=== PATIENT | female | born 2005 | race American Indian/Alaskan Native ===

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

== ENCOUNTER 2023-02-16 19:22 | Emergency (ER) | payer MEDICAID ==
[2023-02-16 19:54] VITALS: BP 138/58; PULSE 80
[2023-02-16 20:06] LABS: APPEARANCE,URINE SLIGHTLY CLOUDY (CLEAR); BILIRUBIN,URINE NEGATIVE (NEGATIVE); COLOR,URINE YELLOW (YELLOW); GLUCOSE,URINE NEGATIVE (NEGATIVE); KETONES,URINE NEGATIVE (NEGATIVE); LEUKOCYTE ESTERASE,URINE SMALL (NEGATIVE); NITRITE,URINE NEGATIVE (NEGATIVE); OCCULT BLOOD,URINE TRACE-LYSED (NEGATIVE); PROTEIN,URINE TRACE (NEGATIVE); UROBILINOGEN,URINE 0.2 mg/dL (0.2-1.0)
[2023-02-16 20:17] LABS: AMORPHOUS SEDIMENT,URINE FEW /HPF (NOT SEEN); BACTERIA,URINE MANY /HPF (0-FEW/HPF); EPITHELIAL CELLS,URINE MODERATE /HPF (NOT SEEN); MUCUS,URINE FEW /LPF (NOT SEEN); WBC,URINE 40-50 /HPF (0-5/HPF)
[2023-02-16] MEDS ORDERED: cefTRIAXone 500 MG, Lidocaine 1% 1 ML IM ONE ×2 (21:40)
[2023-02-16] MEDS ORDERED: Take Home: Ciprofloxacin HCl 500 MG, 6 Tab Pack PO ONE (21:50)
[2023-02-16] MEDS ORDERED: Take Home: Doxycycline 100 MG Cap, 4 Cap Pack PO ONE (21:51)
[2023-02-20 12:46] LABS: C.TRACHOMATIS BY TMA Positive (Negative); M GENITALIUM Positive (Negative); M GENITALIUM SOURCE Urine; N.GONORRHOEAE BY TMA Negative (Negative); SOURCE Urine
== END 2023-02-16 22:23 | disposition home or self-care (01) ==
LOC: DL.ED 19:22
DX: N30.01 Acute cystitis with hematuria (principal); N76.5 Ulceration of vagina; F17.210 Nicotine dependence, cigarettes, uncomplicated; Z86.16 Personal history of COVID-19; Z20.2 Contact with and (suspected) exposure to infections with a predominantly sexual mode of transmission
CPT/HCPCS: 81001; 86695; 86696; 87086; 87088; 87491; 87563; 87591; 96372; 99283; A9270; J0696; 36415; J3490

== ENCOUNTER 2023-11-12 19:52 | Emergency (ER) | payer MEDICAID, OTHER ==
[~2023-11-12 19:52] MED LIST: Ketamine 500 mg/10 ML MDV IV ONE; LORazepam 2 MG/ML SDV ONE
[2023-11-12] MEDS ORDERED: Ketamine 500 mg/10 ML MDV IV ONE ×7 (19:58→20:37)
[2023-11-12] MEDS ORDERED: Iopamidol 612 MG/ML 100 ML Bottle IVPUSH ONE (19:59)
[2023-11-12 20:03] LABS: BASOPHILS PERCENT AUTO 0.2 % (0.0-1.0); EOSINOPHILS PERCENT AUTO 0.1 % (1.0-3.0); HEMATOCRIT 39.3 % (37.0-47.0); HEMOGLOBIN 12.6 g/dL (12.0-16.0); LYMPHOCYTES PERCENT AUTO 28.9 % (20.5-50.1); MEAN CORPUSCULAR HEMOGLOBIN 27.9 pg (27.0-34.0); MEAN CORPUSCULAR HGB CONC 32.1 g/dL (33.0-35.0); MEAN CORPUSCULAR VOLUME 87.1 fL (80-100); MONOCYTES PERCENT AUTO 5.4 % (2-8); NEUTROPHILS PERCENT AUTO 65.4 % (42.2-75.2); PLATELET COUNT,PLT 295 10^3/uL (150-450); RED BLOOD CELL COUNT 4.51 10^6/uL (4.2-5.4); WHITE BLOOD CELL COUNT,WBC 14.2 10^3/uL (5.0-10.0)
[2023-11-12 20:18] LABS: PROTHROMBIN TIME 9.9 SEC (9.0-12.0)
[2023-11-12] MEDS: Iopamidol 755 Mg/ML 100 ML Bottle IVPUSH ONE (20:20)
[2023-11-12 20:22] LABS: A/G RATIO 0.9; ALANINE AMINOTRANSFERASE,ALT 19 U/L (14-59); ALBUMIN 3.8 g/dL (3.4-5.0); ALKALINE PHOSPHATASE 99 U/L (46-116); ANION GAP 19.2 mEq/L (7-13); ASPARTATE AMNIOTRANSFERASE,AST 15 U/L (15-37); BILIRUBIN TOTAL 0.3 mg/dL (0.2-1.0); BLOOD UREA NITROGEN,BUN 6 mg/dL (7-18); BUN/CREATININE RATIO 6.7 (No establ ref range); CALCIUM 8.4 mg/dL (8.5-10.1); CARBON DIOXIDE,CO2 22 mmol/L (21-32); CHLORIDE,CL 106 mmol/L (98-107); ESTIMATED GFR 94 mL/min (>=60); GLUCOSE RANDOM 99 mg/dL (70-99); POTASSIUM,K 3.2 mmol/L (3.5-5.1); PROTEIN TOTAL,TP 7.9 g/dL (6.4-8.2); SODIUM,NA 144 mmol/L (136-145)
[2023-11-12] MEDS ORDERED: Sodium Chloride 0.9% 1,000 ML IV ONE (20:22)
[2023-11-12] MEDS ORDERED: diphenhydrAMINE 50 MG/ML SDV IVPUSH ONE (20:22)
[2023-11-12 20:24] LABS: HCG QUALITATIVE,SERUM NEGATIVE (NEGATIVE)
[2023-11-12 20:50] LABS: APPEARANCE,URINE CLEAR (CLEAR); BILIRUBIN,URINE NEGATIVE (NEGATIVE); GLUCOSE,URINE NEGATIVE (NEGATIVE); KETONES,URINE NEGATIVE (NEGATIVE); LEUKOCYTE ESTERASE,URINE NEGATIVE (NEGATIVE); NITRITE,URINE NEGATIVE (NEGATIVE); OCCULT BLOOD,URINE TRACE-INTACT (NEGATIVE); PROTEIN,URINE NEGATIVE (NEGATIVE); UROBILINOGEN,URINE 0.2 mg/dL (0.2-1.0)
[2023-11-12 20:51] LABS: COLOR,URINE LIGHT YELLOW (YELLOW)
[2023-11-12 20:57] LABS: AMORPHOUS SEDIMENT,URINE RARE /HPF (NOT SEEN); BACTERIA,URINE RARE /HPF (0-FEW/HPF); EPITHELIAL CELLS,URINE RARE /HPF (NOT SEEN); MUCUS,URINE RARE /LPF (NOT SEEN); RBC,URINE 0-5 /HPF (0-5); WBC,URINE 0-5 /HPF (0-5/HPF)
[2023-11-12 20:58] LABS: AMPHETAMINES,URINE NEGATIVE (NEGATIVE); BARBITURATES,URINE NEGATIVE (NEGATIVE); BENZODIAZEPINE,URINE NEGATIVE (NEGATIVE); MDMA (ECSTASY), URINE NEGATIVE (NEGATIVE); METHADONE,URINE NEGATIVE (NEGATIVE); METHAMPHETAMINES,URINE NEGATIVE (NEGATIVE); OPIATES,URINE NEGATIVE (NEGATIVE); OXYCODONE,URINE NEGATIVE (NEGATIVE); PHENCYCLIDINE,URINE NEGATIVE (NEGATIVE); TCA,URINE NEGATIVE (NEGATIVE)
[2023-11-12] MEDS: Diphtheria,Pertussis(Acell),Tetanus Vaccine 0.5 ML Syringe IM ONE (21:29)
== END 2023-11-12 23:50 | disposition home or self-care (01) ==
LOC: DL.ED 19:52
DX: S01.81XA Laceration without foreign body of other part of head, initial encounter (principal); F10.129 Alcohol abuse with intoxication, unspecified; Z86.16 Personal history of COVID-19; Y90.8 Blood alcohol level of 240 mg/100 ml or more; Z23 Encounter for immunization; V87.7XXA Person injured in collision between other specified motor vehicles (traffic), initial encounter; Y92.410 Unspecified street and highway as the place of occurrence of the external cause
CPT/HCPCS: 12013; 36415; 40650; 51702; 70450; 71260; 72125; 72128; 72131; 74177; 80053; 80143; 80179; 80305; 80307; 81001; 84703; 85025; 85610; 90471; 96361; 96374; 99283; 99285; Q9967; 90715

== ENCOUNTER 2023-11-13 05:37 | Emergency (ER) | payer SELFPAY ==
[2023-11-13 06:42] LABS: BASOPHILS PERCENT AUTO 0.3 % (0.0-1.0); EOSINOPHILS PERCENT AUTO 0.3 % (1.0-3.0); HEMATOCRIT 38.5 % (37.0-47.0); HEMOGLOBIN 12.3 g/dL (12.0-16.0); LYMPHOCYTES PERCENT AUTO 16.9 % (20.5-50.1); MEAN CORPUSCULAR HEMOGLOBIN 28.1 pg (27.0-34.0); MEAN CORPUSCULAR HGB CONC 31.9 g/dL (33.0-35.0); MEAN CORPUSCULAR VOLUME 88.1 fL (80-100); MONOCYTES PERCENT AUTO 6.2 % (2-8); NEUTROPHILS PERCENT AUTO 76.3 % (42.2-75.2); PLATELET COUNT,PLT 253 10^3/uL (150-450); RED BLOOD CELL COUNT 4.37 10^6/uL (4.2-5.4); WHITE BLOOD CELL COUNT,WBC 14.6 10^3/uL (5.0-10.0)
[2023-11-13 06:44] LABS: APPEARANCE,URINE CLEAR (CLEAR); BILIRUBIN,URINE NEGATIVE (NEGATIVE); COLOR,URINE YELLOW (YELLOW); GLUCOSE,URINE NEGATIVE (NEGATIVE); KETONES,URINE 40 (NEGATIVE); LEUKOCYTE ESTERASE,URINE NEGATIVE (NEGATIVE); NITRITE,URINE NEGATIVE (NEGATIVE); OCCULT BLOOD,URINE NEGATIVE (NEGATIVE); PH,URINE 6.5 (5.0-9.0); PROTEIN,URINE TRACE (NEGATIVE); UROBILINOGEN,URINE 0.2 mg/dL (0.2-1.0)
[2023-11-13 06:50] VITALS: BP 118/67; PULSE 72
[2023-11-13 06:51] LABS: AMPHETAMINES,URINE NEGATIVE (NEGATIVE); BARBITURATES,URINE NEGATIVE (NEGATIVE); BENZODIAZEPINE,URINE NEGATIVE (NEGATIVE); MDMA (ECSTASY), URINE NEGATIVE (NEGATIVE); METHADONE,URINE NEGATIVE (NEGATIVE); METHAMPHETAMINES,URINE NEGATIVE (NEGATIVE); OPIATES,URINE NEGATIVE (NEGATIVE); OXYCODONE,URINE NEGATIVE (NEGATIVE); PHENCYCLIDINE,URINE NEGATIVE (NEGATIVE); TCA,URINE NEGATIVE (NEGATIVE)
[2023-11-13 06:57] LABS: EPITHELIAL CELLS,URINE MANY /HPF (NOT SEEN); RBC,URINE 0-5 /HPF (0-5)
[2023-11-13 06:58] LABS: BACTERIA,URINE FEW /HPF (0-FEW/HPF); MUCUS,URINE RARE /LPF (NOT SEEN)
[2023-11-13 07:11] LABS: A/G RATIO 0.9; ALBUMIN 3.6 g/dL (3.4-5.0); ANION GAP 16.7 mEq/L (7-13); BILIRUBIN TOTAL 0.4 mg/dL (0.2-1.0); BUN/CREATININE RATIO 9.1 (No establ ref range); CALCIUM 7.7 mg/dL (8.5-10.1); CREATININE 0.77 mg/dL (0.55-1.02); EST CRCL DRUG DOSING (CG) 113.33 mL/min; MAGNESIUM 1.9 mg/dL (1.8-2.4); POTASSIUM,K 3.7 mmol/L (3.5-5.1); PROTEIN TOTAL,TP 7.5 g/dL (6.4-8.2); TSH ULTRASENSITIVE 1.3 uIU/mL (0.36-3.74)
[2023-11-13 08:00] LABS: ETHANOL BLOOD MEDICAL 76 mg/dL (0)
[2023-11-13 08:01] LABS: ACETAMINOPHEN 0 ug/mL (10-30 (Therapeutic))
== END 2023-11-13 09:40 ==
LOC: DL.ED 05:37
DX: F10.120 Alcohol abuse with intoxication, uncomplicated (principal); F32.A Depression, unspecified; F19.10 Other psychoactive substance abuse, uncomplicated; Z86.16 Personal history of COVID-19; Y90.9 Presence of alcohol in blood, level not specified
CPT/HCPCS: 36415; 80053; 80143; 80305-QW; 80307; 81001; 83735; 84443; 85025; 99284; 99285

== ENCOUNTER 2023-12-01 16:03 | Emergency (ER) | payer SELFPAY ==
[2023-12-01 16:28] VITALS: BP 156/68; PULSE 111
== END 2023-12-01 17:05 | disposition home or self-care (01) ==
LOC: DL.ED 16:03
DX: K62.5 Hemorrhage of anus and rectum (principal); F10.10 Alcohol abuse, uncomplicated; Z86.16 Personal history of COVID-19; Y90.9 Presence of alcohol in blood, level not specified
CPT/HCPCS: 99283

== ENCOUNTER 2024-04-16 12:40 | Emergency (ER) | payer MEDICAID, OTHER ==
[2024-04-16] MEDS ORDERED: Ondansetron 4 MG/2 ML SDV IV ONE (12:44)
[2024-04-16] MEDS ORDERED: Sodium Chloride 0.9% 1,000 ML IV ONE (12:44)
[2024-04-16] MEDS ORDERED: Sodium Chloride 0.9% 10 ML Syringe FLUSH PRN (12:45)
[2024-04-16 13:00] LABS: BASOPHILS PERCENT AUTO 0.3 % (0.0-1.0); HEMATOCRIT 35.7 % (37.0-47.0); HEMOGLOBIN 11.2 g/dL (12.0-16.0); LYMPHOCYTES PERCENT AUTO 16.8 % (20.5-50.1); MEAN CORPUSCULAR HEMOGLOBIN 28.1 pg (27.0-34.0); MEAN CORPUSCULAR HGB CONC 31.4 g/dL (33.0-35.0); MEAN CORPUSCULAR VOLUME 89.5 fL (80-100); MONOCYTES PERCENT AUTO 9.9 % (2-8); PLATELET COUNT,PLT 245 10^3/uL (150-450); RED BLOOD CELL COUNT 3.99 10^6/uL (4.2-5.4); WHITE BLOOD CELL COUNT,WBC 6.1 10^3/uL (5.0-10.0)
[2024-04-16 13:15] LABS: PROTHROMBIN TIME 10.3 SEC (9.0-12.0); PTT,PARTIAL THROMBOPLSTIN TIME 26.5 SEC (22.0-34.0)
[2024-04-16 13:19] LABS: HCG QUALITATIVE,SERUM NEGATIVE (NEGATIVE)
[2024-04-16 13:30] LABS: A/G RATIO 0.9; ALANINE AMINOTRANSFERASE,ALT 19 U/L (14-59); ALBUMIN 3.4 g/dL (3.4-5.0); ALKALINE PHOSPHATASE 81 U/L (46-116); AMYLASE 59 U/L (25-115); ASPARTATE AMNIOTRANSFERASE,AST 18 U/L (15-37); BILIRUBIN TOTAL 0.3 mg/dL (0.2-1.0); BLOOD UREA NITROGEN,BUN 10 mg/dL (7-18); BUN/CREATININE RATIO 11.8 (No establ ref range); CALCIUM 8.5 mg/dL (8.5-10.1); CARBON DIOXIDE,CO2 24 mmol/L (21-32); CHLORIDE,CL 108 mmol/L (98-107); CREATININE 0.85 mg/dL (0.55-1.02); ESTIMATED GFR 100 mL/min (>=60); ETHANOL BLOOD MEDICAL 103 mg/dL (0); GLUCOSE RANDOM 83 mg/dL (70-99); LIPASE 21 U/L (16-77); PROTEIN TOTAL,TP 7.1 g/dL (6.4-8.2); SODIUM,NA 143 mmol/L (136-145)
[2024-04-16] MEDS: Iopamidol 612 MG/ML 100 ML Bottle IVPUSH ONE (13:54)
[2024-04-16 14:45] LABS: APPEARANCE,URINE SLIGHTLY CLOUDY (CLEAR); BILIRUBIN,URINE NEGATIVE (NEGATIVE); COLOR,URINE YELLOW (YELLOW); GLUCOSE,URINE NEGATIVE (NEGATIVE); KETONES,URINE TRACE (NEGATIVE); LEUKOCYTE ESTERASE,URINE NEGATIVE (NEGATIVE); NITRITE,URINE NEGATIVE (NEGATIVE); OCCULT BLOOD,URINE NEGATIVE (NEGATIVE); PROTEIN,URINE NEGATIVE (NEGATIVE); UROBILINOGEN,URINE 0.2 mg/dL (0.2-1.0)
[2024-04-16 14:51] LABS: AMPHETAMINES,URINE POSITIVE (NEGATIVE); BARBITURATES,URINE NEGATIVE (NEGATIVE); BENZODIAZEPINE,URINE NEGATIVE (NEGATIVE); MDMA (ECSTASY), URINE POSITIVE (NEGATIVE); METHADONE,URINE NEGATIVE (NEGATIVE); METHAMPHETAMINES,URINE POSITIVE (NEGATIVE); OPIATES,URINE NEGATIVE (NEGATIVE); OXYCODONE,URINE NEGATIVE (NEGATIVE); PHENCYCLIDINE,URINE NEGATIVE (NEGATIVE); TCA,URINE NEGATIVE (NEGATIVE)
== END 2024-04-16 15:13 ==
LOC: DL.ED 12:40
DX: S01.20XA Unspecified open wound of nose, initial encounter (principal); S80.02XA Contusion of left knee, initial encounter; S80.01XA Contusion of right knee, initial encounter; S50.312A Abrasion of left elbow, initial encounter; D64.9 Anemia, unspecified; F15.10 Other stimulant abuse, uncomplicated; F12.10 Cannabis abuse, uncomplicated; F10.920 Alcohol use, unspecified with intoxication, uncomplicated; Z86.16 Personal history of COVID-19; V49.9XXA Car occupant (driver) (passenger) injured in unspecified traffic accident, initial encounter
CPT/HCPCS: 36415; 70450; 70486; 71260; 72125; 74177; 80053; 80305; 80307; 81003; 82150; 83690; 84703; 85025; 85610; 85730; 93010; 96361; 96374; 99284; Q9967